=== PATIENT | male | born 1975 | race Caucasian/White ===

== ENCOUNTER → 2016-11-15 | Outpatient (CLI) | payer BC ==
--- NOTE | 2016-11-15 12:45 | DIAGNOSTIC IMAGING REPORT ---
ABDOMINAL ULTRASOUND, left lower QUADRANT HISTORY: Groin mass LEFT GROIN MASS. COMPARISON: None. FINDINGS: Evaluation ultrasonically of the left groin and inguinal region confirms presence of rather prominent adenopathy. Several nodes are present with nodes measuring up to 2.1 x 2.2 cm and 2.2 x 3.1 cm. IMPRESSION: Palpable abnormality left lower quadrant/inguinal region is consistent with that of a least 2 enlarged nodes. Fine-needle aspiration for cytologic evaluation suggested. Electronically signed by: Ovidio Junior M.D. 11/15/2016 12:44 PM Dictated Date/Time: 11/15/2016 12:43 PM
== END | disposition home or self-care (01) ==
LOC: C.ULTR 12:21
PROVIDERS: ATTEND Family Medicine
DX: R19.09 Other intra-abdominal and pelvic swelling, mass and lump (principal)

== ENCOUNTER → 2016-12-06 | Outpatient (CLI) | payer BC ==
--- NOTE | 2016-12-06 13:48 | Discharge Instructions ---
Discharge Instructions Procedure Procedure Date: Dec 06, 2016. Reason for visit: Groin Mass. Discharge Discharge Date: Dec 06, 2016. Discharge Diagnosis: s/p left groin node FNA Instructions Activity Recommendations: No limitations Return to School/Work: no limitations Recommended Home Diet: No Limitations Provider Instructions: ACTIVITY RECOMMENDATIONS: * Rest today. * Resume regular activity in one day. MEDICATIONS: * May take Tylenol or Ibuprofen as needed for pain. DIET: * Resume previous diet. SPECIAL CARE INSTRUCTIONS: Call your doctor if: * Temperature above 101 degrees F. * Pain not relieved by pain medicine ordered. * Increased drainage or redness from incision. * Notify your doctor with any questions or concerns. Call your doctor or go to the nearest Emergency Department if you experience: * Increased chest pain or shortness of breath. FOLLOW UP VISIT: Follow-up with Referring Physician as scheduled. Allergies Coded Allergies: No Known Allergies (Unverified , 05/10/13) Beba Orozco Recommendations: Call your doctor if: * Temperature above 101 degrees * Pain not relieved by pain medicine ordered * There is increased drainage or redness from any incision * You have any unanswered questions or concerns. Your Doctors Instructions noted above were prepared by provider Sukhdev Owens. Patient Signature Section: Patient Instructions Signature Page Edis Baxter Patient (or Guardian) Signature/Date: I have read and understand the instructions given to me by my caregivers. Caregiver/RN/Doctor Signature/Date: The above-named patient and/or guardian has received patient instructions on this date. + Original Patient Signature Page (only) stays with chart. Please make copy for patient.
--- NOTE | 2016-12-06 13:57 | DIAGNOSTIC IMAGING REPORT ---
GUIDANCE NEEDLE PLACEMENT HISTORY:41 yearsMaleGROIN MASS COMPARISON: Ultrasound 11/15/2016. PROCEDURE: The risks, benefits, and alternatives to the procedure were discussed with the patient. Written informed consent was obtained. The patient was placed supine in ultrasound, and the 2.0 cm lymph node in the left inguinal region was localized by ultrasound and selected for fine needle aspiration. The left groin was prepped and draped in the usual sterile fashion. The lymph node was aspirated under ultrasound guidance with 3 passes utilizing 25-gauge needles. Specimens were reviewed by the pathologist in real-time and deemed adequate for diagnosis. The patient tolerated the procedure well and left the department in satisfactory condition. An additional lymph node was seen in the left groin which had a normal-appearing homogeneous cortex and fatty hilum measuring up to 1.0 cm in short axis. IMPRESSION: Successful fine-needle aspiration of 2.0 cm left groin lymph node. Pathology pending. The above report was generated using voice recognition software. It may contain grammatical, syntax or spelling errors. Electronically signed by: Sha Owens 12/06/2016 1:56 PM Dictated Date/Time: 12/06/2016 1:52 PM
[2016-12-12 12:17] LABS: NEO FLOW LYMPH/LEUK STND SEE NEO MISC
== END | disposition home or self-care (01) ==
LOC: C.ULTR 12:51
PROVIDERS: ATTEND Family Medicine
DX: R22.2 Localized swelling, mass and lump, trunk (principal)

== ENCOUNTER → 2017-12-25 | Outpatient (CLI) | payer BC, OTHER ==
--- NOTE | 2017-12-25 16:55 | DIAGNOSTIC IMAGING REPORT ---
L KNEE 4 OR MORE HISTORY: 42 years-old Male LEFT KNEE PAIN acute on chronic left knee pain COMPARISON: Knee radiographs 12/15/2014 TECHNIQUE: AP view of the bilateral knees with sunrise, AP axial and lateral views of the left knee FINDINGS: Mild tricompartmental joint space narrowing with marginal spurring about the left knee. Mild medial compartment joint space narrowing about the right knee. Postoperative changes from left knee ACL repair. Small left knee joint effusion without acute fracture, dislocation or opaque foreign body. Indeterminate 13 mm ossification is seen within the popliteal tissues. Mild soft tissue swelling about the left knee. 4 mm corticated bone fragment projects over Hoffa fat pad. IMPRESSION: 1. Postoperative changes from prior ACL repair. No acute fracture or dislocation. 2. Small joint effusion with mild soft tissue swelling. The above report was generated using voice recognition software. It may contain grammatical, syntax or spelling errors. Electronically signed by: Sha Owens M.D. 12/25/2017 4:54 PM Dictated Date/Time: 12/25/2017 4:51 PM
== END | disposition home or self-care (01) ==
LOC: C.RDSM 10:56
PROVIDERS: ATTEND Physician Assistant
DX: M25.562 Pain in left knee (principal)